=== PATIENT | female | born 1950 | race Caucasian/White ===

== ENCOUNTER 2016-11-14 16:25 | Emergency (ER) | payer OTHER ==
[~2016-11-14 16:25] MED LIST: DOK100 MG PO; LAMICTAL PO; MULTIPLE VITAMI1 T12 PO; PREMARIN PO
[2016-11-14] MEDS ORDERED: LO-DOSE ASPIRIN81 M1 (16:45)
[2016-11-14] MEDS ORDERED: LAMICTAL150 MG (16:46)
[2016-11-14] MEDS ORDERED: LORAZEPAM I2 MG/1 ML (16:46)
== END 2016-11-14 18:48 | disposition home or self-care (01) ==
LOC: SED 16:25
DX: S51.811A Laceration without foreign body of right forearm, initial encounter (principal); Z90.710 Acquired absence of both cervix and uterus; Z98.51 Tubal ligation status; Z23 Encounter for immunization; W45.8XXA Other foreign body or object entering through skin, initial encounter; Y93.89 Activity, other specified
CPT/HCPCS: 12002; 90471; 90715; 99283